=== PATIENT | male | born 1960 | race Caucasian/White ===

== ENCOUNTER 2018-05-28 13:46 | Emergency (ER) | payer MEDICAID ==
--- NOTE | 2018-05-28 14:53 | EDPHY ---
H & P Stated Complaint: detox, penile discharge Time Seen by Provider: 05/28/18 14:52 HPI/ROS: CHIEF COMPLAINT: [ ] HISTORY OF PRESENT ILLNESS: [Need 4: Location, Duration, Severity, Quality, Context, Timing Modifying Factors, Associated S&S] REVIEW OF SYSTEMS: A comprehensive 10 point review of systems is otherwise negative aside from elements mentioned in the history of present illness. Source: Patient - Personal History Current Tetanus/Diphtheria Vaccine: Yes Current Tetanus Diphtheria and Acellular Pertussis (TDAP): Yes - Medical/Surgical History Hx Asthma: Yes Hx Chronic Respiratory Disease: No Hx Diabetes: No Hx Cardiac Disease: No Hx Renal Disease: No Hx Cirrhosis: No Hx Alcoholism: Yes Hx HIV/AIDS: No Hx Splenectomy or Spleen Trauma: No Other PMH: ETOH, asthma, depression, anxiety, bipolar - Social History Smoking Status: Heavy smoker - Physical Exam Exam: General Appearance: [Alert, no distress] Eyes: [Pupils equal and round no pallor or injection] ENT, Mouth: [Mucous membranes moist] Respiratory: [There are no retractions, lungs are clear to auscultation] Cardiovascular: [Regular rate and rhythm] Gastrointestinal: [Abdomen is soft and nontender, no masses, bowel sounds normal] Neurological: [A&O, normal motor function, normal sensory exam, normal cranial nerves] Skin: [Warm and dry, no rashes] Musculoskeletal: [Neck is supple nontender] Extremities: [symmetrical, full range of motion] Psychiatric: [Patient is oriented X 3, there is no agitation] Constitutional: Initial Vital Signs Temperature (C) 37.1 C 05/28/18 13:58 Heart Rate 93 05/28/18 13:58 Respiratory Rate 16 05/28/18 13:58 Blood Pressure 149/83 H 05/28/18 13:58 O2 Sat (%) 96 05/28/18 13:58 O2 Delivery Mode Room Air Allergies/Adverse Reactions: haloperidol [From Haldol] Allergy (Verified 05/28/18 13:57) quetiapine [From Seroquel] Allergy (Verified 05/28/18 13:57) risperidone [From Risperdal] Allergy (Verified 05/28/18 13:57) bees Allergy (Uncoded 05/28/18 13:57) Home Medications: Medication Instructions Recorded Amitriptyline HCl 05/28/18 Buspar (*) 05/28/18 Gabapentin 05/28/18 Departure - Departure Referrals: NONE *PRIMARY CARE P,. [Primary Care Provider] - As per Instructions
[2018-05-28] MEDS ORDERED: CHLORDIAZEPOXIDE 25MG PREPK#6 BTL TAKEHOME ONE (15:04)
[2018-05-28] MEDS ORDERED: AZITHROMYCIN 250 MG TAB PO ONE ×2 (15:05→15:19)
--- NOTE | 2018-05-28 15:09 | EDPHY ---
H & P Stated Complaint: detox, penile discharge Time Seen by Provider: 05/28/18 14:52 HPI/ROS: CHIEF COMPLAINT: Alcohol withdrawal, penile discharge HISTORY OF PRESENT ILLNESS: 57-year-old male with alcoholism presents with a chief complaint of alcohol withdrawal. He usually drinks a liter of vodka daily. Last alcoholic beverage was at 0900 this morning. Starting to feel slightly tremulous. No vomiting or hallucinations. Has gone through alcohol withdrawal previously and experienced hallucinations and shakiness. 2-3 week history of urethral discharge. No prior history of STD. REVIEW OF SYSTEMS: complete 10 point ROS reviewed and is negative except for the noted elements in the HPI - Personal History Current Tetanus/Diphtheria Vaccine: Yes Current Tetanus Diphtheria and Acellular Pertussis (TDAP): Yes - Medical/Surgical History Hx Asthma: Yes Hx Chronic Respiratory Disease: No Hx Diabetes: No Hx Cardiac Disease: No Hx Renal Disease: No Hx Cirrhosis: No Hx Alcoholism: Yes Hx HIV/AIDS: No Hx Splenectomy or Spleen Trauma: No Other PMH: ETOH, asthma, depression, anxiety, bipolar - Social History Smoking Status: Heavy smoker Alcohol Use: Heavy Drug Use: None - Physical Exam Exam: General Appearance: Alert, cooperative, very slight resting tremor Eyes: Pupils equal and round, no conjunctival pallor or injection ENT, Mouth: Mucous membranes moist Neck: Normal inspection Respiratory: Lungs are clear to auscultation, no wheezing Cardiovascular: Regular rate and rhythm Gastrointestinal: Abdomen is soft and nontender Genitourinary: watery drainage present, erythema at tip of penis, no ulceration or open sore Neurological: A&O, nonfocal, normal gait Skin: Warm and dry Extremities: sunburn to distal forearms/hands Psychiatric: Mood and affect normal Constitutional: Initial Vital Signs Temperature (C) 37.1 C 05/28/18 13:58 Heart Rate 93 05/28/18 13:58 Respiratory Rate 16 05/28/18 13:58 Blood Pressure 149/83 H 05/28/18 13:58 O2 Sat (%) 96 05/28/18 13:58 O2 Delivery Mode Room Air Allergies/Adverse Reactions: haloperidol [From Haldol] Allergy (Verified 05/28/18 13:57) quetiapine [From Seroquel] Allergy (Verified 05/28/18 13:57) risperidone [From Risperdal] Allergy (Verified 05/28/18 13:57) bees Allergy (Uncoded 05/28/18 13:57) Home Medications: Medication Instructions Recorded Amitriptyline HCl 05/28/18 Buspar (*) 05/28/18 Gabapentin 05/28/18 Medical Decision Making ED Course/Re-evaluation: This patient presents with alcohol withdrawal and penile discharge. He is barely tremulous on physical exam, not tachycardic and not vomiting. He would like to go to the [facility] and I feel that this is a safe plan for him. He will be sent to the [facility] with a prepack of Librium. Penile discharge is consistent with acute urethritis. He was unable to provide a urine sample. Urethral swab sent for GC and Chlamydia. Rocephin IM and Zithromax orally given. He will follow up at [facility] if the urethral discharge does not resolve. STD precautions discussed. - Data Points Laboratory Results: 05/28/18 16:27 C.trachomatis RNA (TMA) NEGATIVE (NEGATIVE) N.gonorrhoeae RNA (TMA) NEGATIVE (NEGATIVE) Medications Given: Discontinued Medications Azithromycin (Zithromax) 1,000 mg PO EDNOW ONE PRN Reason: Protocol Stop: 05/28/18 15:06 Last Admin: 05/28/18 15:15 Dose: 1,000 mg Ceftriaxone Sodium (Rocephin Im Syringe) 250 mg IM ONCE ONE PRN Reason: Protocol Stop: 05/28/18 15:06 Last Admin: 05/28/18 16:00 Dose: 250 mg Chlordiazepoxide (Librium 25 Mg Prepack#6) 1 btl TAKEHOME EDNOW ONE Stop: 05/28/18 15:05 Last Admin: 05/28/18 15:16 Dose: 1 btl Departure - Departure Disposition: Home, Routine, Self-Care Clinical Impression: Penile discharge Alcohol withdrawal Qualifiers: Complication of substance-induced condition: uncomplicated Qualified Code(s): F10.230 - Alcohol dependence with withdrawal, uncomplicated Condition: Good Instructions: Sexually Transmitted Diseases (ED), Alcohol Withdrawal (ED) Additional Instructions: You received treatment for an STD today with antibiotics, Rocephin and Zithromax. Librium 1 tablet every 4 hours as needed for alcohol withdrawal. The [facility] has walk-in appointments for the homeless at the following days/locations. No appointment is needed. Sunday 8-10 am @ [facility] 11 AM-1 PM @ the [facility] Sunday 8-10:30 AM @ [facility] Sunday 8-10 AM @ [facility] 2-4 PM @ [facility] Sunday 8-10 AM @ [facility] Referrals: [facility],. [Clinic] - As per Instructions
[2018-05-28 16:31] VITALS: BP 140/85
--- NOTE | 2018-05-28 16:58 | ASDISCHSUM ---
Discharge Information Plan Status:Substance Abuse Referrals Medically Cleared to Leave: Discharge Date:05/28/2018 04:30 PM CM D/C Disposition:Other (Not listed) ADT D/C Disposition:Home, Routine, Self-Care Projected Discharge Date:05/28/2018 04:30 PM Transportation at D/C:C[employer]ou[employer] Discharge Delay Reason: Follow-Up Date:05/28/2018 04:30 PM Discharge Slot: Final Diagnosis: Placement Information Patient Contact Information Contact Name:THIGABRIELLA Relationship: Address: Home Phone: Work Phone: City: Alternate Phone: State/Zip Code: Email: Financial Information Financial Class:Medicaid Primary Plan Desc:[employer] Primary Plan Number:[id number] Secondary Plan Desc: Secondary Plan Number: Assessment Information Intervention Information Intervention Type:Community Resources Date of Service:05/28/2018 04:51 PM Patient Type:Emergency Room Staff Member:EKTA Hernandez [place] Hours:0.25 Discipline:Reconciliation Accountant Severity: Comment:provided pt w/info on [facility] and other various homelessness resources. Intervention Type:Health Clinic Date of Service:05/28/2018 04:51 PM Patient Type:Emergency Room Staff Member:EKTA Hernandez [place] Hours:0.25 Discipline:Reconciliation Accountant Severity: Comment:provided pt info on [facility] an d their homeless drop in hours. Intervention Type:Community Resources Date of Service:05/28/2018 04:51 PM Patient Type:Emergency Room Staff Member:EKTA Hernandez [place] Hours:0.25 Discipline:Reconciliation Accountant Severity: Comment:pt provided info on [facility]
[2018-05-29 11:35] LABS: GC AMPLIFICATION GENPROBE NEGATIVE (NEGATIVE)
== END 2018-05-28 16:30 | disposition home or self-care (01) ==
DX: R36.9 Urethral discharge, unspecified (principal); F10.230 Alcohol dependence with withdrawal, uncomplicated; J45.909 Unspecified asthma, uncomplicated; F41.9 Anxiety disorder, unspecified; F32.9 Major depressive disorder, single episode, unspecified
CPT/HCPCS: J0696

== ENCOUNTER 2018-05-29 14:04 | Emergency (ER) | payer MEDICAID ==
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
[2018-05-29] MEDS ORDERED: CHLORDIAZEPOXIDE 25MG PREPK#6 BTL TAKEHOME ONE (15:19)
[2018-05-29] MEDS ORDERED: chlordiazePOXIDE 25 MG CAP PO ONE (15:19)
[2018-05-29] MEDS ORDERED: CEPHALEXIN 500 MG CAP PO ONE (15:36)
[2018-05-29] MEDS ORDERED: DOXYCYCLINE HYCLATE 100 MG CAP/TAB PO ONE (15:36)
[2018-05-29 16:08] VITALS: BP 129/63
== END 2018-05-29 16:57 | disposition home or self-care (01) ==
LOC: EDUNIT#
DX: F10.10 Alcohol abuse, uncomplicated (principal); L03.115 Cellulitis of right lower limb; J45.909 Unspecified asthma, uncomplicated; F31.9 Bipolar disorder, unspecified